=== PATIENT | male | born 1980 | race African-American/Black ===

== ENCOUNTER 2016-07-31 11:15 | Emergency (ER) | payer OTHER ==
[~2016-07-31] VITALS: Ht 180.3 cm; Wt 78.0 kg
[2016-07-31] MEDS ORDERED: TESSALON PERLE100 MG PO (13:26)
[2016-07-31] MEDS ORDERED: FLONASE16 G1 BOTH NARES (13:26)
[2016-07-31] MEDS ORDERED: ZITHROMAX Z-PA250 MG PO (13:26)
[2016-07-31] MEDS ORDERED: MUCINEX D ER T1 EACH PO (13:26)
[2016-07-31] MEDS ORDERED: VENTOLIN HFA18 GM IH (13:26)
[2016-07-31] MEDS ORDERED: PREDNISONE20 MG PO (13:26)
[2016-07-31 14:14] VITALS: BP 119/63
== END 2016-07-31 14:16 | disposition home or self-care (01) ==
LOC: EME 11:15
DX: J32.9 Chronic sinusitis, unspecified (principal); J40 Bronchitis, not specified as acute or chronic; F17.200 Nicotine dependence, unspecified, uncomplicated
CPT/HCPCS: 99281; 99283

== ENCOUNTER 2017-08-30 03:57 | Inpatient (IN) | payer OTHER ==
[~2017-08-30] VITALS: Ht 180.3 cm; Wt 70.7 kg
[~2017-08-30 03:57] MED LIST: FLONASE16 G1 BOTH NARES; MUCINEX D ER T1 EACH PO; PREDNISONE20 MG PO; TESSALON PERLE100 MG PO; VENTOLIN HFA18 GM IH; ZITHROMAX Z-PA250 MG PO
[2017-08-30 13:34] LABS: AMPHETAMINE NEGATIVE (500 ng/mL); BARBITURATES NEGATIVE (200 ng/mL); BENZODIAZEPINES NEGATIVE (150 ng/mL); BUPRENORPHINE NEGATIVE (10 ng/mL); COCAINE NEGATIVE (150 ng/mL); METHADONE NEGATIVE (200 ng/mL); METHAMPHETAMINE NEGATIVE (500 ng/mL); OPIATES (MORPHINE) NEGATIVE (100 ng/mL); OXYCODONE NEGATIVE (100 ng/mL); PHENCYCLIDINE NEGATIVE (25 ng/mL); PROPOXYPHENE NEGATIVE (300 ng/mL); THC CANNABINOIDS PRESUMPTIVE POSITIVE (50 ng/mL); TRICYCLIC ANTIDEPRESSANTS NEGATIVE (300 ng/mL)
[2017-08-30 14:00] VITALS: BP 164/68
[2017-08-30 15:59] VITALS: BP 164/61
[2017-08-30 17:06] VITALS: BP 130/62
[2017-08-31 07:40] VITALS: BP 113/73
== END 2017-08-31 13:37 | disposition home or self-care (01) | DRG 885 ==
LOC: EME 03:57 → EDOF 11:40 → ENRESERV 12:57 → 1WEST 13:18
PROVIDERS: Emergency Medicine
DX: F33.9 Major depressive disorder, recurrent, unspecified (principal); R45.851 Suicidal ideations; F10.229 Alcohol dependence with intoxication, unspecified; F12.90 Cannabis use, unspecified, uncomplicated; F29 Unspecified psychosis not due to a substance or known physiological condition; F17.200 Nicotine dependence, unspecified, uncomplicated; K21.9 Gastro-esophageal reflux disease without esophagitis
CPT/HCPCS: 84999; 90837; 99281; 99285; G0480

== ENCOUNTER 2017-09-09 06:34 | Emergency (ER) | payer OTHER ==
[~2017-09-09] VITALS: Ht 180.3 cm; Wt 72.0 kg
[2017-09-09 08:12] VITALS: BP 133/76
== END 2017-09-09 08:26 | disposition home or self-care (01) ==
LOC: EME 06:34
PROC: 3E0234Z Introduction of Serum, Toxoid and Vaccine into Muscle, Percutaneous Approach (ICD-10-PCS; principal; 2017-09-09)
PROC: 0HQGXZZ Repair Left Hand Skin, External Approach (ICD-10-PCS; principal; 2017-09-09)
DX: S61.412A Laceration without foreign body of left hand, initial encounter (principal); S60.222A Contusion of left hand, initial encounter; W25.XXXA Contact with sharp glass, initial encounter; W22.8XXA Striking against or struck by other objects, initial encounter; Z23 Encounter for immunization; F17.200 Nicotine dependence, unspecified, uncomplicated
CPT/HCPCS: 73130; 99281; 99283

== ENCOUNTER 2017-09-11 09:12 | Emergency (ER) | payer OTHER ==
[~2017-09-11] VITALS: Ht 180.3 cm; Wt 72.3 kg
[2017-09-11 09:15] VITALS: BP 107/73
== END 2017-09-11 11:20 | disposition left against medical advice (07) ==
LOC: EME 09:12
DX: S69.92XA Unspecified injury of left wrist, hand and finger(s), initial encounter (principal); Z53.21 Procedure and treatment not carried out due to patient leaving prior to being seen by health care provider

== ENCOUNTER 2017-10-04 04:13 | Emergency (ER) | payer OTHER ==
[~2017-10-04] VITALS: Ht 180.3 cm; Wt 68.2 kg
[2017-10-04] MEDS ORDERED: ZITHROMAX Z-PA250 MG PO (04:50)
[2017-10-04] MEDS ORDERED: PROVENTIL HFA6.7 GM IH (04:50)
[2017-10-04] MEDS ORDERED: PREDNISONE20 MG PO (04:50)
[2017-10-04] MEDS ORDERED: PRILOSEC20 MG PO (05:26)
[2017-10-04 05:39] VITALS: BP 122/78
== END 2017-10-04 05:39 | disposition home or self-care (01) ==
LOC: EME 04:13
DX: J20.9 Acute bronchitis, unspecified (principal); J45.909 Unspecified asthma, uncomplicated; J02.9 Acute pharyngitis, unspecified; F17.200 Nicotine dependence, unspecified, uncomplicated
CPT/HCPCS: 94640; 99281; 99284; J7512